=== PATIENT | female | born 1995 | race Caucasian/White ===

== ENCOUNTER 2018-11-20 19:10 | Emergency (ER) | payer OTHER ==
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
[2018-11-20] MEDS ORDERED: SERT-173 PO (19:29)
[2018-11-20] MEDS ORDERED: KETOROLAC 30 MG/ML VIAL IVP ONE (19:35)
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
[2018-11-20 22:00] VITALS: BP 103/87
== END 2018-11-20 22:00 | disposition home or self-care (01) ==
LOC: ER 19:27
DX: S13.4XXA Sprain of ligaments of cervical spine, initial encounter (principal); S39.012A Strain of muscle, fascia and tendon of lower back, initial encounter; J01.00 Acute maxillary sinusitis, unspecified; V49.40XA Driver injured in collision with unspecified motor vehicles in traffic accident, initial encounter
CPT/HCPCS: 70450; 71046; 71120; 72125; 72131; 81025; 96374; 99284; J1885